=== PATIENT | female | born 1980 | race Two or more races ===

== ENCOUNTER 2024-11-12 19:51 | Emergency (ER) | payer OTHER ==
[~2024-11-12] VITALS: Ht 157.5 cm; Wt 90.7 kg
[2024-11-12] MEDS ORDERED: AMBIEN10 MG PO (19:55)
[2024-11-12] MEDS ORDERED: ZOLOFT50 MG PO (19:56)
[2024-11-12] MEDS ORDERED: ZYRTEC10 MG PO (22:14)
[2024-11-12] MEDS ORDERED: NASONEX 24HR AL17 ML NASAL (22:14)
[2024-11-12] MEDS ORDERED: SINGULAIR10 MG PO (22:14)
[2024-11-12 22:34] VITALS: BP 128/86; O2SAT 97
== END 2024-11-12 22:34 | disposition home or self-care (01) ==
LOC: ER 19:51
DX: J30.89 Other allergic rhinitis (principal); J32.9 Chronic sinusitis, unspecified